=== PATIENT | female | born 1935 | race African-American/Black ===

== ENCOUNTER 2018-10-10 11:30 | Inpatient (IN) ==
[~2018-10-10 11:30] MED LIST: VANCOMYCIN INJ 1,000 MG in SODIUM CHLORIDE 0.9% 250 ML IV ONE; ceFAZolin 1,000 MG in SYRINGE 1 EACH IV ONE
[2018-10-18] MEDS ORDERED: VANCOMYCIN 1,000 MG VIAL ONE (07:40)
[2018-10-18] MEDS ORDERED: ceFAZolin 1,000 MG VIAL ONE (07:40)
[2018-10-18] MEDS ORDERED: BUPIVACAINE SPINAL 0.75% 2 ML AMP SPINAL ONE (08:03)
[2018-10-18] MEDS ORDERED: BISACODYL 10 MG SUPP RECTAL PRN (08:42)
[2018-10-18] MEDS ORDERED: diphenhydrAMINE CAP 25 MG CAPSULE PO PRN (08:42)
[2018-10-18] MEDS ORDERED: MORPHINE 4 MG/1 ML VIAL IV PRN ×2 (08:42→11:29)
[2018-10-18] MEDS ORDERED: TEMAZEPAM 7.5 MG CAPSULE PO PRN (08:42)
[2018-10-18] MEDS ORDERED: LACTULOSE 20 GM/30 ML UDCUP PO PRN (08:42)
[2018-10-18] MEDS ORDERED: ONDANSETRON 4 MG/2 ML VIAL IV PRN (08:42)
[2018-10-18] MEDS ORDERED: PROMETHAZINE 25 MG/1 ML VIAL IM PRN (08:42)
[2018-10-18] MEDS ORDERED: ACETAMINOPHEN/CODEINE 300-30 MG TABLET PO PRN (08:44)
[2018-10-18] MEDS ORDERED: MECLIZINE 25 MG TABLET PO PRN (08:44)
[2018-10-18] MEDS ORDERED: GLUCAGON 1 MG VIAL IM PRN (08:45)
[2018-10-18] MEDS ORDERED: DEXTROSE 50% 25 GM/50 ML VIAL IV PRN (08:45)
[2018-10-18] MEDS ORDERED: DICLOFENAC SODIUM 75 MG TABLET PO SCH (09:00)
[2018-10-18 10:14] LABS: Apearance,Urine CLEAR (Clear); Bilirubin,Urine Negative (Negative); Blood, Urine Negative (Negative); Glucose,Urine (UA) Negative (Negative); Ketones,Urine Negative (Negative); Mucus,Urine Occasional /LPF (Occasional); Nitrite,Urine Negative (Negative); Protein,Urine Negative; RBC,Urine 1 /HPF (0-4); Squamous Epithelial Cell,Urine Occasional /HPF (0-10); Urine Color Yellow (Yellow); Urine Specific Gravity 1.018 (1.001-1.035); Urine Urobilinogen < 2.0 EU/DL (0.2-1.0); WBC,Urine <1 /HPF (0-6)
[2018-10-18] MEDS ORDERED: PROPOFOL 200 MG/20 ML VIAL IV ONE (11:14)
[2018-10-18] MEDS ORDERED: SODIUM CHLORIDE 0.9% 100 ML IV ONE (11:15)
[2018-10-18] MEDS ORDERED: MIDAZOLAM 2 MG/2 ML VIAL ONE (11:15)
[2018-10-18] MEDS ORDERED: ONDANSETRON 4 MG/2 ML VIAL ONE (11:15)
[2018-10-18] MEDS ORDERED: PHENYLEPHRINE 10 MG/1 ML VIAL IV ONE (11:15)
[2018-10-18] MEDS ORDERED: TRANEXAMIC ACID 1,000 MG/10 ML VIAL ONE (11:15)
[2018-10-18] MEDS ORDERED: ACETAMINOPHEN 1,000 MG/100 ML VIAL IV ONE (11:15)
[2018-10-18] MEDS ORDERED: fentaNYL 100 MCG/2 ML VIAL ONE (11:15)
[2018-10-18] MEDS ORDERED: PHENYLEPHRINE 1 MG/10 ML SYRINGE IV ONE (11:15)
[2018-10-18] MEDS ORDERED: GLYCOPYRROLATE 0.4 MG/2 ML VIAL ONE (11:16)
[2018-10-18] MEDS ORDERED: KETAMINE 500 MG/10 ML VIAL ONE (11:16)
[2018-10-18] MEDS: ASPIRIN CHEW 81 MG TABLET PO SCH (12:15)
[2018-10-18] MEDS: DOCUSATE SODIUM 100 MG CAPSULE PO SCH ×2 (12:16→20:43)
[2018-10-18] MEDS: LACTATED RINGERS 1,000 ML IV SCH (12:17)
[2018-10-18] MEDS: INSULIN REGULAR 100 UNIT/ML SUBCUT SCH ×3 (12:21→20:55)
[2018-10-18] MEDS: ceFAZolin 1,000 MG in SYRINGE 1 EACH IV SCH (15:42)
[2018-10-18] MEDS: glipiZIDE 5 MG TABLET PO SCH (15:42)
[2018-10-18] MEDS: POTASSIUM CHLORIDE 10 MEQ TABLET PO SCH (15:42)
[2018-10-18] MEDS: FONDAPARINUX 2.5 MG/0.5 ML SYRINGE SUBCUT SCH (20:43)
[2018-10-19] MEDS: ceFAZolin 1,000 MG in SYRINGE 1 EACH IV SCH (00:15)
[2018-10-19 05:42] LABS: Basophils % 0.1 % (0.0-0.8); Hematocrit 31.5 VOL% (35.7-47.0); Hemoglobin 10.2 GM/DL (12.0-16.0); Immature Granulocytes % 0.2 %; Immature Granulocytes Absolute 0.02 #; Lymphocytes # 2.1 10*3/uL (1.4-4.0); Mean Corpuscular HGB Conc 32.4 GM/DL (32-36); Mean Corpuscular Hemoglobin 28 PG (27-34); Mean Corpuscular Volume 86.1 FL (87-102); Mean Platelet Volume 11.1 FL (9.6-12.0); Monocytes # 0.7 10*3/uL (0.11-0.8); Neutrophils # 6.9 10*3/uL (1.4-7.4); Neutrophils % 70.7 % (38.7-73.9); Platelet Count 174 T/CUMM (130-400); Red Blood Count 3.66 MC/CUMM (3.8-5.5); Red Cell Distribution Width 13.3 % (9.3-17.3); White Blood Count 9.7 T/CUMM (4-12)
[2018-10-19 05:49] LABS: Calcium 8.7 MG/DL (8.5-10.1); Osmolality,Calculated 277.7 MOS/KG (273-304); Potassium 3.6 MMOL/L (3.5-5.1)
[2018-10-19] MEDS: LACTATED RINGERS 1,000 ML IV SCH (06:33)
[2018-10-19] MEDS: POTASSIUM CHLORIDE 10 MEQ TABLET PO SCH ×2 (08:30→17:30)
[2018-10-19] MEDS: glipiZIDE 5 MG TABLET PO SCH ×2 (08:30→17:30)
[2018-10-19] MEDS: INSULIN REGULAR 100 UNIT/ML SUBCUT SCH ×4 (08:30→21:42)
[2018-10-19] MEDS: sitaGLIPtin 100 MG TABLET PO SCH (09:00)
[2018-10-19] MEDS: metFORMIN 500 MG TABLET PO SCH (09:00)
[2018-10-19] MEDS ORDERED: DICLOFENAC SODIUM 75 MG TABLET PO SCH (09:00)
[2018-10-19] MEDS: DOCUSATE SODIUM 100 MG CAPSULE PO SCH ×2 (09:21→21:42)
[2018-10-19] MEDS: ASPIRIN CHEW 81 MG TABLET PO SCH (09:21)
[2018-10-19] MEDS: FONDAPARINUX 2.5 MG/0.5 ML SYRINGE SUBCUT SCH (21:42)
[2018-10-20] MEDS: LACTATED RINGERS 1,000 ML IV SCH (02:08)
[2018-10-20 05:09] LABS: Basophils % 0.1 % (0.0-0.8); Eosinophils # 0.1 10*3/uL (0.0-0.87); Eosinophils % 0.8 % (0.00-10.9); Hematocrit 30.4 VOL% (35.7-47.0); Hemoglobin 9.8 GM/DL (12.0-16.0); Immature Granulocytes % 0.5 %; Immature Granulocytes Absolute 0.05 #; Lymphocytes # 2.8 10*3/uL (1.4-4.0); Lymphocytes % 26.3 % (21.3-54.2); Mean Corpuscular HGB Conc 32.2 GM/DL (32-36); Mean Corpuscular Hemoglobin 28 PG (27-34); Mean Corpuscular Volume 87.4 FL (87-102); Mean Platelet Volume 11.1 FL (9.6-12.0); Monocytes # 0.9 10*3/uL (0.11-0.8); Monocytes % 8.8 % (1.7-12.7); Neutrophils # 6.8 10*3/uL (1.4-7.4); Neutrophils % 63.5 % (38.7-73.9); Platelet Count 163 T/CUMM (130-400); Red Blood Count 3.48 MC/CUMM (3.8-5.5); Red Cell Distribution Width 13.7 % (9.3-17.3); White Blood Count 10.7 T/CUMM (4-12)
[2018-10-20] MEDS: metFORMIN 500 MG TABLET PO SCH (08:16)
[2018-10-20] MEDS: ASPIRIN CHEW 81 MG TABLET PO SCH (08:17)
[2018-10-20] MEDS: glipiZIDE 5 MG TABLET PO SCH ×2 (08:17→16:52)
[2018-10-20] MEDS: POTASSIUM CHLORIDE 10 MEQ TABLET PO SCH ×2 (08:17→16:53)
[2018-10-20] MEDS: MAGNESIUM HYDROXIDE SUSP 30 ML UDCUP PO PRN ×2 (08:17→20:50)
[2018-10-20] MEDS: DOCUSATE SODIUM 100 MG CAPSULE PO SCH ×2 (08:19→20:50)
[2018-10-20] MEDS: INSULIN REGULAR 100 UNIT/ML SUBCUT SCH ×4 (08:20→22:27)
[2018-10-20] MEDS: sitaGLIPtin 100 MG TABLET PO SCH (09:33)
[2018-10-20] MEDS: FONDAPARINUX 2.5 MG/0.5 ML SYRINGE SUBCUT SCH (20:50)
[2018-10-21] MEDS: glipiZIDE 5 MG TABLET PO SCH (08:14)
[2018-10-21] MEDS: metFORMIN 500 MG TABLET PO SCH (08:14)
[2018-10-21] MEDS: sitaGLIPtin 100 MG TABLET PO SCH (08:15)
[2018-10-21] MEDS: ASPIRIN CHEW 81 MG TABLET PO SCH (08:15)
[2018-10-21] MEDS: POTASSIUM CHLORIDE 10 MEQ TABLET PO SCH (08:15)
[2018-10-21] MEDS: DOCUSATE SODIUM 100 MG CAPSULE PO SCH (08:15)
[2018-10-21] MEDS: INSULIN REGULAR 100 UNIT/ML SUBCUT SCH (08:15)
[2018-10-21 12:00] VITALS: BP 120/76
== END 2018-10-21 12:35 | disposition swing bed (61) | DRG 470 ==
LOC: N.SDSINP 10-18 05:35 → N.3E 10-18 11:22
PROVIDERS: ADMIT Orthopaedic Surgery; ATTEND Orthopaedic Surgery